=== PATIENT | male | born 1955 | race Caucasian/White ===

== ENCOUNTER 2022-05-28 20:29 | Emergency (ER) | payer BC, OTHER ==
[2022-05-28 20:37] VITALS: BP 169/94; PULSE 80; RESP 18; TEMP 98; BMI 27.4
== END 2022-05-28 22:44 | disposition home or self-care (01) ==
LOC: JERFT 20:29
DX: H11.32 Conjunctival hemorrhage, left eye (principal)
CPT/HCPCS: 99282-25

== ENCOUNTER 2022-06-09 13:49 | Observation (INO) | payer OTHER ==
[2022-06-09 15:35] LABS: EOS % 4.8 % (0-4.5); HEMATOCRIT 48.8 % (35.4-49); HEMOGLOBIN 16.3 GM/dL (11.7-16.9); LYMPH % 20.1 % (8-40); MCH 26.9 pg (25.7-33.7); MCHC 33.4 g/dl (32.0-35.9); MEAN CELL VOLUME 80.6 fl (80-96); MEAN PLT VOLUME 8.5 fl (7.5-11.1); MONO % 10.5 % (3.8-10.2); NEUT % 63.6 % (42.8-82.8); PLATELET COUNT 262 10^3/uL (134-434); RBC 6.05 M/mm3 (4.00-5.60); RDW 15.2 % (11.9-15.9); WHITE BLOOD COUNT 7.6 K/mm3 (4.0-10.0)
[2022-06-09 15:42] LABS: INR 1.05 (0.83-1.09); PROTHROMBIN TIME (PATIENT) 12.1 SEC (9.7-13.0)
[2022-06-09 15:44] LABS: ACTIVATED PTT 28.6 SECONDS (25.2-36.5)
[2022-06-09 15:56] LABS: ALBUMIN 4.1 g/dl (3.4-5.0); CALCIUM 9.7 mg/dL (8.5-10.1)
[2022-06-09 15:58] LABS: BLOOD UREA NITROGEN 18.8 mg/dL (7-18)
[2022-06-09 15:59] LABS: CREATININE 1.6 mg/dL (0.55-1.3)
[2022-06-09 16:02] LABS: BILIRUBIN,TOTAL 0.5 mg/dL (0.2-1)
[2022-06-09 19:02] LABS: PH,URINE 5.5 (5.0-8.0); URINE APPEARANCE CLEAR; URINE BILIRUBIN NEGATIVE (NEGATIVE); URINE COLOR YELLOW; URINE GLUCOSE (UA) NEGATIVE (NEGATIVE); URINE KETONE NEGATIVE (NEGATIVE); URINE LEUK ESTERASE NEGATIVE (NEGATIVE); URINE NITRITE NEGATIVE (NEGATIVE); URINE PROTEIN NEGATIVE (NEGATIVE); URINE UROBILINOGEN 0.2 mg/dL (0.2-1.0)
[2022-06-09 19:16] LABS: URINE BENZODIAZEPINES NEGATIVE (NEGATIVE)
[2022-06-09 19:17] LABS: METHADONE, UR NEGATIVE (NEGATIVE); OPIATES, URI NEGATIVE (NEGATIVE); PHENCYCLIDINE,URINE NEGATIVE (NEGATIVE); URINE BARBITURATES NEGATIVE (NEGATIVE)
[2022-06-09 19:21] LABS: COCAINE, UR POSITIVE (NEGATIVE); URINE AMPHETAMINES NEGATIVE (NEGATIVE)
[2022-06-09] MEDS ORDERED: DEXTROSE 5%-NORMAL SALINE 1,000 ML IV SCH (22:15)
[2022-06-09] MEDS ORDERED: ASPIRIN 325 MG ENTERIC COATED TABLET (FP) PO ONE (23:35)
[2022-06-10] MEDS ORDERED: SODIUM CHLORIDE 1,000 ML IV SCH (02:00)
[2022-06-10] MEDS: amLODIPine BESYLATE 5 MG TABLET (FP) PO SCH ×2 (02:09→09:35)
[2022-06-10 08:02] LABS: EOS % 5.6 % (0-4.5); HEMATOCRIT 46.3 % (35.4-49); HEMOGLOBIN 15.4 GM/dL (11.7-16.9); LYMPH % 20.7 % (8-40); MCH 27.1 pg (25.7-33.7); MCHC 33.4 g/dl (32.0-35.9); MEAN CELL VOLUME 81.2 fl (80-96); MEAN PLT VOLUME 8.6 fl (7.5-11.1); MONO % 12.7 % (3.8-10.2); PLATELET COUNT 214 10^3/uL (134-434); RDW 15.4 % (11.9-15.9); WHITE BLOOD COUNT 7.7 K/mm3 (4.0-10.0)
[2022-06-10 08:05] LABS: ALBUMIN 3.7 g/dl (3.4-5.0); MAGNESIUM 2.1 mg/dL (1.8-2.4)
[2022-06-10 08:08] LABS: CREATININE 1.3 mg/dL (0.55-1.3); PHOSPHOROUS 3.2 mg/dL (2.5-4.9)
[2022-06-10 08:09] LABS: BILIRUBIN,TOTAL 0.8 mg/dL (0.2-1); TOT PROT 7.3 g/dl (6.4-8.2)
[2022-06-10 09:10] VITALS: RESP 20
[2022-06-10] MEDS ORDERED: amLODIPine BESYLATE 5 MG TABLET (FP) ONE (09:26)
[2022-06-10] MEDS ORDERED: ENOXAPARIN NA (PORCINE) 40 MG/0.4 ML DISP.SYRIN SQ ONE (09:27)
[2022-06-10] MEDS ORDERED: ASPIRIN 81 MG CHEWABLE TABLETS ONE (09:27)
[2022-06-10] MEDS ORDERED: ASPIRIN 325 MG ENTERIC COATED TABLET (FP) PO SCH (10:00)
[2022-06-10] MEDS ORDERED: ENOXAPARIN NA (PORCINE) 40 MG/0.4 ML DISP.SYRIN SQ SCH (10:00)
[2022-06-10] MEDS ORDERED: ASPIRIN COATED 81 MG TABLET.EC PO SCH (10:00)
[2022-06-10 15:40] VITALS: BP 134/95; PULSE 79; TEMP 98.2
[2022-06-10] MEDS ORDERED: ATORVASTATIN CA 80 MG TABLET (FP) PO SCH (22:00)
== END 2022-06-10 19:00 | disposition left against medical advice (07) ==
LOC: JER 13:49 → INTOOBSV 17:39 → JERBED 17:39
PROVIDERS: ADMIT Internal Medicine; ATTEND Internal Medicine
PROC: 3E033GC Introduction of Other Therapeutic Substance into Peripheral Vein, Percutaneous Approach (ICD-10-PCS; principal; 2022-06-09)
PROC: 3E023GC Introduction of Other Therapeutic Substance into Muscle, Percutaneous Approach (ICD-10-PCS; 2022-06-09)
PROC: 3E0337Z Introduction of Electrolytic and Water Balance Substance into Peripheral Vein, Percutaneous Approach (ICD-10-PCS; 2022-06-09)
DX: I63.9 Cerebral infarction, unspecified (principal); N17.9 Acute kidney failure, unspecified; F14.10 Cocaine abuse, uncomplicated; R47.01 Aphasia
CPT/HCPCS: 0241U-QW; 36415; 70450-TC; 70496-TC; 70551-TC; 71046-TC-FY; 80053; 80061; 80307; 81003; 82550; 82962; 83036; 83735; 84100; 84484; 85025; 85610; 85730; 86850; 86900; 86901; 87086; 93005; 93010; 96361; 96365; 96372; 99285-25; G0378; Q9967

== ENCOUNTER 2023-12-03 19:51 | Day surgery (SDC) | payer OTHER ==
[2023-12-03 19:55] VITALS: BMI 25.7
[2023-12-03] MEDS ORDERED: ACETAMINOPHEN INJECTION 100 ML IVPB ONE (20:47)
[2023-12-03 21:07] LABS: BASO % 0.8 % (0-2.0); EOS % 5.9 % (0-4.5); HEMATOCRIT 44.6 % (35.4-49); HEMOGLOBIN 14.9 GM/dL (11.7-16.9); LYMPH % 17.5 % (8-40); MCH 27.3 pg (25.7-33.7); MCHC 33.4 g/dl (32.0-35.9); MEAN CELL VOLUME 81.7 fl (80-96); MEAN PLT VOLUME 7.8 fl (7.5-11.1); MONO % 8.1 % (3.8-10.2); NEUT % 67.7 % (42.8-82.8); PLATELET COUNT 244 10^3/uL (134-434); RBC 5.46 M/mm3 (4.00-5.60); RDW 14.5 % (11.9-15.9); WHITE BLOOD COUNT 8.7 K/mm3 (4.0-10.0)
[2023-12-03] MEDS: ACETAMINOPHEN 1000 MG/100 ML BAG IVPB ONE (21:10)
[2023-12-03 21:14] LABS: INR 1.02 (0.83-1.09); PROTHROMBIN TIME (PATIENT) 11.5 SEC (9.7-13.0)
[2023-12-03 21:17] LABS: ACTIVATED PTT 31.1 SECONDS (25.2-36.5)
[2023-12-03 21:24] LABS: POTASSIUM 4.5 mmol/L (3.5-5.1)
[2023-12-03 21:26] LABS: CALCIUM 9.6 mg/dL (8.5-10.1)
[2023-12-03 21:28] LABS: BLOOD UREA NITROGEN 15.9 mg/dL (7-18)
[2023-12-03 21:30] LABS: CREATININE 1.4 mg/dL (0.55-1.3)
[2023-12-03 21:31] LABS: BILIRUBIN,TOTAL 0.5 mg/dL (0.2-1); TOT PROT 7.7 g/dl (6.4-8.2)
[2023-12-03] MEDS ORDERED: morphine SULFATE 4 MG/ML VIAL ONE (23:17)
[2023-12-03] MEDS: morphine CARPU-JECT 2 MG/1 ML DISP.SYRIN IVPUSH ONE (23:23)
[2023-12-04] MEDS ORDERED: PIPERACILLIN/TAZOB 3.375 GM 3.375 GM/50 ML BAG IVPB ONE (00:05)
[2023-12-04] MEDS: SODIUM CHLORIDE 0.9% 500 ML INFUS.BAG IV ONE (00:42)
[2023-12-04] MEDS: PIPERACILLIN/TAZOB 3.375 GM 3.375 GM in DEXTROSE 5%-WATER - 50 ML IVPB ONE (00:42)
[2023-12-04] MEDS: DEXTROSE 5%-NORMAL SALINE 1,000 ML IV SCH (00:42)
[2023-12-04] MEDS ORDERED: MORPHINE SULFATE 2 MG/ML SYRINGE IVPUSH PRN ×2 (04:00→05:14)
[2023-12-04] MEDS ORDERED: LISINOPRIL 20 MG TABLET ONE (04:38)
[2023-12-04] MEDS: LISINOPRIL 20 MG TABLET PO ONE (04:55)
[2023-12-04] MEDS: SODIUM CHLORIDE 0.45%/POT 20 MEQ/1,000 ML INFUS.BAG IV SCH ×2 (04:55→12:23)
[2023-12-04] MEDS ORDERED: LIDOCAINE HCL 2% JELLY 11 ML TP ONE ×2 (05:04→05:54)
[2023-12-04] MEDS ORDERED: SUCCINYLCHOLINE CHLORIDE 200 MG/10 ML SYRINGE ONE (05:15)
[2023-12-04] MEDS ORDERED: ACETAMINOPHEN INJECTION 100 ML IVPB ONE (05:15)
[2023-12-04] MEDS ORDERED: ONDANSETRON 4 MG/2 ML VIAL ONE ×2 (05:16→08:24)
[2023-12-04] MEDS ORDERED: DEXAMETHASONE SOD PHOSPHATE 4 MG/1 ML VIAL ONE (05:16)
[2023-12-04] MEDS ORDERED: LIDOCAINE HCL/PF 2% SDV 5ML VIAL ONE (05:16)
[2023-12-04] MEDS ORDERED: PROPOFOL 20 ML ONE ×2 (05:21→07:24)
[2023-12-04] MEDS ORDERED: MIDAZOLAM HCL 2 MG/2 ML SINGLE DOSE VIAL ONE ×2 (05:22→07:35)
[2023-12-04] MEDS ORDERED: ROCURONIUM BROMIDE 50 MG/5 ML SYRINGE ONE ×2 (05:22→07:22)
[2023-12-04] MEDS ORDERED: DEXMEDETOMIDINE HCL 200 MCG/2 ML IVPB ONE (05:31)
[2023-12-04] MEDS ORDERED: ONDANSETRON 4 MG/2 ML VIAL IVPUSH PRN ×3 (06:26→09:57)
[2023-12-04] MEDS ORDERED: cefOXitin SODIUM 2 GM VIAL (RESTRICTED TO ID) IVPB ONE (06:28)
[2023-12-04] MEDS: cefOXitin SODIUM 2 GM VIAL (RESTRICTED TO ID) IVPB ONE (07:06)
[2023-12-04] MEDS ORDERED: HYDROmorphone HCl 2 MG/ML VIAL ONE (07:08)
[2023-12-04] MEDS: BUPIVACAINE HCL/PF 0.25% (2.5MG/ML) 10 ML VIAL IJ ONE ×2 (07:08)
[2023-12-04] MEDS ORDERED: LABETALOL HCL 20 MG/4 ML VIAL ONE (08:24)
[2023-12-04] MEDS ORDERED: GLYCOPYRROLATE 0.2 MG/1 ML VIAL ONE (08:24)
[2023-12-04] MEDS ORDERED: NEOSTIGMINE METHYLSULFATE 0.5 MG/1 ML - 10 ML MDV ONE (08:24)
[2023-12-04] MEDS ORDERED: HYDROmorphone HCl 2 MG/ML VIAL IVPUSH PRN (09:12)
[2023-12-04] MEDS ORDERED: HYDROmorphone HCL CARPU-JECT 2 MG/1 ML DISP.SYRIN ONE (09:16)
[2023-12-04] MEDS: MIDAZOLAM HCL 2 MG/2 ML SINGLE DOSE VIAL IVPUSH PRN (09:20)
[2023-12-04] MEDS ORDERED: oxyCODONE HCL 5 MG TABLET PO PRN ×2 (09:57)
[2023-12-04] MEDS ORDERED: HYDROCHLOROTHIAZIDE 12.5 MG CAPSULE (FP) PO SCH ×2 (10:00)
[2023-12-04] MEDS: LACTATED RINGERS SOLUTION 1,000 ML IV SCH ×3 (10:31→12:23)
[2023-12-04 11:15] VITALS: RESP 18
[2023-12-04] MEDS: LIDOCAINE HCL 2% JELLY 10 ML CARTRIDGE TP ONE (12:22)
[2023-12-04] MEDS: BENZOCAINE 20% UNIT DOSE SPRAY MM ONE (12:22)
[2023-12-04] MEDS: PIPERACILLIN/TAZOB 3.375 GM 3.375 GM in DEXTROSE 5%-WATER - 50 ML IVPB SCH (12:22)
[2023-12-04] MEDS ORDERED: DOCUSATE SODIUM 100 MG CAPSULE (FP) PO SCH (14:00)
[2023-12-04] MEDS ORDERED: ACETAMINOPHEN 1000 MG/100 ML BAG IVPB SCH (15:00)
[2023-12-04] MEDS ORDERED: CEFOXITIN SODIUM 2 GM in DEXTROSE 5%-WATER - 100 ML IVPB SCH (15:15)
[2023-12-04] MEDS: SODIUM CHLORIDE 1,000 ML IV SCH (16:46)
[2023-12-04] MEDS ORDERED: LISINOPRIL 20 MG TABLET PO SCH ×2 (22:00)
[2023-12-04] MEDS: ACETAMINOPHEN 1000 MG/100 ML BAG IVPB PRN (22:40)
[2023-12-05] MEDS ORDERED: PIPERACILLIN/TAZOB 3.375 GM 3.375 GM in DEXTROSE 5%-WATER - 50 ML IVPB SCH (03:00)
[2023-12-05 15:33] VITALS: BP 149/87; PULSE 71; TEMP 97.9
== END 2023-12-05 17:19 | disposition home or self-care (01) ==
LOC: JER 19:51 → UNDOADMIN 12-04 00:11 → JERBED 12-04 00:11 → JASUSAT 12-04 10:32 → SUATTDRO 12-04 10:32 → J6S 12-04 10:59 → JASUSAT 12-05 17:19
PROC: 8E0W4CZ Robotic Assisted Procedure of Trunk Region, Percutaneous Endoscopic Approach (ICD-10-PCS; 2023-12-04)
PROC: 0WUF4JZ Supplement Abdominal Wall with Synthetic Substitute, Percutaneous Endoscopic Approach (ICD-10-PCS; principal; 2023-12-04 05:30)
DX: K42.0 Umbilical hernia with obstruction, without gangrene (principal)
CPT/HCPCS: 49594; S2900; 36415; 74177-TC; 76775-TC; 80053; 83605; 83690; 85025; 85610; 85730; 86850; 86900; 86901; 93005; 93010; 94760; 99285-25; C1781; J0131; J3480; Q9967